=== PATIENT | female | born 1940 | race Caucasian/White ===

== ENCOUNTER 2018-04-09 18:21 | Emergency (ER) | payer OTHER ==
[2018-04-09 18:50] LABS: ADD MAN DIFF? NO
[2018-04-09 18:54] LABS: BASOPHILS % 0.2 % (0.0-2.0); EOSINOPHILS % 0.2 % (0.0-7.0); HEMOGLOBIN 7.6 g/dl (12.0-16.0); LYMPHOCYTES # 1.2 10^3/ul (0.8-2.9); LYMPHOCYTES % 9.3 % (15.0-51.0); MEAN CORPUSCULAR HEMOGLOBIN 24.8 pg (29.0-33.0); MEAN CORPUSCULAR HGB CONC 30.4 g/dl (32.0-37.0); MEAN CORPUSCULAR VOLUME 81.4 fl (82.0-101.0); MEAN PLATELET VOLUME 11.2 fl (7.4-10.4); MONOCYTE # 0.8 10^3/ul (0.3-0.9); MONOCYTES % 6.1 % (0.0-11.0); NEUTROPHIL # 10.3 10^3/ul (1.6-7.5); NEUTROPHILS % 83.5 % (39.0-77.0); PLATELET COUNT 279 10^3/UL (140-415); RED BLOOD COUNT 3.07 10^6/ul (4.20-5.40)
[2018-04-09 18:54] LABS: WHITE BLOOD COUNT 12.4 10^3/ul (4.8-10.8)
[2018-04-09 19:16] LABS: ANION GAP 16 (8-16); BLOOD UREA NITROGEN 43 mg/dl (7-20); CALCIUM 8.8 mg/dl (8.4-10.2); CARBON DIOXIDE 22 mmol/L (21-31); CHLORIDE 111 mmol/L (97-110); CREATININE 1.55 mg/dl (0.44-1.00); GLUCOSE 146 mg/dl (70-220); POTASSIUM 3.6 mmol/L (3.5-5.1); SODIUM 145 mmol/L (135-144)
[2018-04-09 19:26] LABS: TROPONIN-I 0.048 ng/ml (0.000-0.120)
[2018-04-09 20:03] LABS: PARTIAL THROMBOPLASTIN TIME 32.9 Sec (25.0-35.0)
[2018-04-09 20:13] LABS: INR 1.18; PROTIME 15.2 Sec (11.9-14.9); PT RATIO 1.2
[2018-04-09] MEDS: SOD CHLORIDE 0.9% 1,000 ML IV (20:14)
[2018-04-09] MEDS: SOD CHLORIDE 0.9% 250 ML IV (20:15)
[2018-04-09 20:29] LABS: OCCULT BLOOD STOOL NEGATIVE (NEGATIVE)
[2018-04-09 23:18] LABS: IMMEDIATE SPIN CROSSMATCH 1 2
== END 2018-04-09 23:50 | disposition short-term general hospital (02) ==
LOC: E/R 18:21
DX: D64.9 Anemia, unspecified (principal); E11.9 Type 2 diabetes mellitus without complications; I10 Essential (primary) hypertension
CPT/HCPCS: 36430; 80048; 82270; 82962; 84484; 85025; 85610; 85730; 86850; 86900; 86901; 86920; 93005; 99284-25